=== PATIENT | female | born 1960 | race Caucasian/White ===

== ENCOUNTER 2018-04-30 10:04 | Emergency (ER) | payer OTHER ==
[2018-04-30 10:14] VITALS: BP 121/76; PULSE 89; TEMP 98.9; BMI 31.7
[2018-04-30] MEDS ORDERED: KETOROLAC TROMETHAMINE 60 MG/2 ML VIAL IM ONE (10:26)
[2018-04-30] MEDS ORDERED: KETOROLAC TROMETHAMINE 60 MG/2 ML VIAL ONE (10:35)
--- NOTE | 2018-04-30 10:47 | PDOC ---
*Physical Exam - Vital Signs Last Vital Signs Temp Pulse Resp BP Pulse Ox 98.9 F 89 20 121/76 97 04/30/18 10:09 04/30/18 10:09 04/30/18 10:09 04/30/18 10:09 04/30/18 10:27 Medical Decision Making - Medical Decision Making 04/30/18 10:36 57 yo F presenting to the ER with a complaint of myalgias, subjective fevers, cough Today is day 3 of symptoms Influenza (+) CXR- D/c to home Symptomatic treatment 04/30/18 11:55 04/30/18 11:56 *DC/Admit/Observation/Transfer Diagnosis at time of Disposition: Influenza A - Discharge Dispostion Condition at time of disposition: Stable - Referrals Referrals: Radha Posada [Primary Care Provider] - - Patient Instructions Printed Discharge Instructions: Influenza Additional Instructions: Usted tiene la gripe. Es un virus y mejorar con el tiempo. Descanse, mantngase hidratado con muchos lquidos y tome motrin o tylenol para el dolor segn sea necesario. Si los sntomas empeoran, vuelva a la [facility] de urgencias. - Post Discharge Activity
--- NOTE | 2018-04-30 11:12 | PDOC ---
History of Present Illness - General Chief Complaint: Respiratory Stated Complaint: BODYACHES Time Seen by Provider: 04/30/18 10:20 History Source: Patient - History of Present Illness Associated Symptoms: reports: cough, fever/chills, malaise. denies: headaches, nausea/vomiting, shortness of breath Past History - Past Medical History Allergies/Adverse Reactions: Allergies Allergy/AdvReac Type Severity Reaction Status Date / Time No Known Allergies Allergy Verified 04/30/18 10:09 Home Medications: Ambulatory Orders NK [No Known Home Medication] 04/30/18 COPD: No - Suicide/Smoking/Psychosocial Hx Smoking History: Never smoked Have you smoked in the past 12 months: No Review of Systems - Review of Systems Constitutional: Yes: Fever, Malaise Respiratory: Yes: Cough. No: Shortness of Breath ABD/GI: No: Diarrhea, Nausea, Vomiting *Physical Exam - Vital Signs Last Vital Signs Temp Pulse Resp BP Pulse Ox 98.9 F 89 20 121/76 97 04/30/18 10:09 04/30/18 10:09 04/30/18 10:09 04/30/18 10:09 04/30/18 10:27 - Physical Exam Comments: 04/30/18 11:45 appears ill General Appearance: Yes: Appropriately Dressed HEENT: positive: Normal ENT Inspection, Normal Voice, TMs Normal, Pharynx Normal , Scleral Icterus (R), Scleral Icterus (L) Neck: positive: Supple. negative: Lymphadenopathy (R), Lymphadenopathy (L) Respiratory/Chest: positive: Lungs Clear, Normal Breath Sounds. negative: Respiratory Distress Cardiovascular: positive: Regular Rate, S1, S2 Gastrointestinal/Abdominal: positive: Soft. negative: Tender Musculoskeletal: negative: CVA Tenderness Integumentary: positive: Dry, Warm Neurologic: positive: Fully Oriented, Alert, Normal Mood/Affect ED Treatment Course - RADIOLOGY Radiology Studies Ordered: Category Date Time Status CHEST X-RAY PORTABLE* [RAD] Stat Radiology 04/30/18 10:26 Ordered - Medications Given in the ED: ED Medications Discontinued Medications Generic Name Dose Route Start Last Admin Trade Name Freq PRN Reason Stop Dose Admin Ketorolac Tromethamine 60 mg 04/30/18 10:26 04/30/18 10:38 Toradol Injection - IM 04/30/18 10:27 60 mg ONCE ONE Administration Medical Decision Making - Medical Decision Making 04/30/18 12:17 57 yo F, no sig hx, here w/ malaise w/ body aches, cough w/ pleuritic CP and subj fever x 3 days. No sob, diarrhea, abd pain, or dysuria. No sick contacts or recent travel. Taking alleve w/ minimal relief See exam Influenza Yuriy uncomfortable but stable Flu A on swab CXR neg No indication for tamiflu -dc w/supportive tx *DC/Admit/Observation/Transfer Diagnosis at time of Disposition: Influenza A - Discharge Dispostion Disposition: HOME Condition at time of disposition: Stable - Referrals Referrals: Radha Posada [Primary Care Provider] - - Patient Instructions Printed Discharge Instructions: Influenza Additional Instructions: Usted tiene la gripe. Es un virus y mejorar con el tiempo. Descanse, mantngase hidratado con muchos lquidos y tome motrin o tylenol para el dolor segn sea necesario. Si los sntomas empeoran, vuelva a la micheal de urgencias. - Post Discharge Activity
== END 2018-04-30 12:42 | disposition home or self-care (01) ==
LOC: JER 10:04
PROC: 3E0233Z Introduction of Anti-inflammatory into Muscle, Percutaneous Approach (ICD-10-PCS; principal; 2018-04-30)
DX: J09.X2 Influenza due to identified novel influenza A virus with other respiratory manifestations (principal)
CPT/HCPCS: 71045-TC-FY; 87804; 99282-25

== ENCOUNTER 2021-09-03 13:22 | Emergency (ER) | payer OTHER ==
[2021-09-03 13:43] VITALS: BMI 30.6
[2021-09-03] MEDS ORDERED: ACETAMINOPHEN 1000 MG/100 ML BAG IVPB ONE (14:28)
[2021-09-03] MEDS ORDERED: ACETAMINOPHEN INJECTION 100 ML IVPB ONE (14:33)
[2021-09-03 15:22] LABS: BASO % 0.5 % (0-2.0); EOS % 0.8 % (0-4.5); HEMOGLOBIN 12.9 GM/dL (10.7-15.3); LYMPH % 27.8 % (8-40); MCH 27.5 pg (25.7-33.7); MCHC 33.2 g/dl (32.0-36.0); MEAN CELL VOLUME 83.1 fl (80-96); MEAN PLT VOLUME 10.9 fl (7.5-11.1); MONO % 5.1 % (3.8-10.2); NEUT % 65.8 % (42.8-82.8); PLATELET COUNT 205 10^3/uL (134-434); RBC 4.69 M/mm3 (3.60-5.2); RDW 15.1 % (11.6-15.6); WHITE BLOOD COUNT 7.7 K/mm3 (4.0-10.0)
[2021-09-03 15:24] LABS: EPI CELLS 13 /uL (0-25.1); HYALINE CASTS 2 /uL (0-3.1); URINE APPEARANCE CLEAR; URINE BACTERIA 139 /uL (0-1359); URINE BILIRUBIN NEGATIVE (NEGATIVE); URINE COLOR YELLOW; URINE GLUCOSE (UA) NEGATIVE (NEGATIVE); URINE KETONE NEGATIVE (NEGATIVE); URINE LEUK ESTERASE 1+ (NEGATIVE); URINE NITRITE NEGATIVE (NEGATIVE); URINE PROTEIN NEGATIVE (NEGATIVE); URINE RBC 14 /uL (0-23.9); URINE UROBILINOGEN 0.2 mg/dL (0.2-1.0); URINE WBC 22 /uL (0-25.8)
[2021-09-03 15:41] LABS: CALCIUM 9.8 mg/dL (8.5-10.1)
[2021-09-03 15:42] LABS: ALBUMIN 3.9 g/dl (3.4-5.0); BLOOD UREA NITROGEN 19.6 mg/dL (7-18)
[2021-09-03 15:45] LABS: CREATININE 0.8 mg/dL (0.55-1.3)
[2021-09-03 15:47] LABS: BILIRUBIN,TOTAL 0.5 mg/dL (0.2-1); TOT PROT 7.3 g/dl (6.4-8.2)
[2021-09-03 17:08] VITALS: BP 101/58; PULSE 64; TEMP 98
== END 2021-09-03 19:06 | disposition home or self-care (01) ==
LOC: JER 13:22
PROC: 3E0333Z Introduction of Anti-inflammatory into Peripheral Vein, Percutaneous Approach (ICD-10-PCS; principal; 2021-09-03)
PROC: 3E0233Z Introduction of Anti-inflammatory into Muscle, Percutaneous Approach (ICD-10-PCS; 2021-09-03)
DX: R10.31 Right lower quadrant pain (principal); D25.9 Leiomyoma of uterus, unspecified; N30.00 Acute cystitis without hematuria
CPT/HCPCS: 36415; 74177-TC; 80053; 81003; 85025; 87086; 99285-25; Q9967